=== PATIENT | male | born 1945 | race Caucasian/White ===

== ENCOUNTER 2017-03-27 15:06 | Day surgery (SDC) | payer BC, OTHER ==
--- NOTE | 2017-03-27 15:48 | PDOC ---
History of Present Illness - General Chief Complaint: Pain Stated Complaint: SCROTUM PAIN Time Seen by Provider: 03/27/17 15:24 History Source: Patient Exam Limitations: No Limitations - History of Present Illness Initial Comments: 03/27/17 15:44 Patient is 71M with history of seizures, HTN and HLD here today with a complaint of testicular torsion on ultrasound imaging. He's had intermittent testicular pain for the past 2 days. He currently has no symptomatic complaints. He says that he had nausea associated with pain. He denies current nausea, vomiting, fevers and chills. He denies chest pain, shortness of breath, and abdominal pain. Past History - Past Medical History Allergies/Adverse Reactions: Allergies Allergy/AdvReac Type Severity Reaction Status Date / Time meperidine HCl [From Demerol] AdvReac Unverified 03/27/17 15:17 Home Medications: Ambulatory Orders CarBAMazepine [Carbatrol ER] 400 mg PO BID 12/14/11 Nifedipine [Nifediac cc] 60 mg PO BID 12/14/11 Ropinirole HCl [Requip] 0.5 mg PO BID 12/14/11 Pravastatin Sodium [Pravachol -] 40 mg PO HS 09/06/13 Anemia: Yes Asthma: No Cancer: No Cardiac Disorders: No CVA: No COPD: No CHF: No Dementia: No Diabetes: No GI Disorders: Yes (COLONIC POLYPS, HEMORRHOIDS ATTENUATED FAMILIAL ADENOMATOSIS) Disorders: No HTN: Yes Hypercholesterolemia: Yes Liver Disease: No Seizures: Yes (last seizure LAST SEIZURE 2 YEARS AGO lesion on brain) Thyroid Disease: No - Surgical History Abdominal Surgery: Yes (HERNIA) Appendectomy: No Cardiac Surgery: No Cholecystectomy: No Lung Surgery: No Neurologic Surgery: No Orthopedic Surgery: No - Psycho/Social/Smoking Cessation Hx Suicidal Ideation: No Smoking History: Never smoked Have you smoked in the past 12 months: No Information on smoking cessation initiated: No Hx Alcohol Use: No Drug/Substance Use Hx: No Substance Use Type: None Review of Systems - Review of Systems Comments:: 03/27/17 15:48 GENERAL/CONSTITUTIONAL: No fever or chills. No weakness. HEAD, EYES, EARS, NOSE AND THROAT: No change in vision. No ear pain or discharge. No sore throat. CARDIOVASCULAR: No chest pain or shortness of breath RESPIRATORY: No cough, wheezing, or hemoptysis. GASTROINTESTINAL: No nausea, vomiting, diarrhea or constipation. GENITOURINARY: Positive for intermittent testicular pain SKIN: No rash NEUROLOGIC: No headache, vertigo, loss of consciousness, or change in strength/ sensation. ALLERGIC/IMMUNOLOGIC: No hives or skin allergy. *Physical Exam - Vital Signs Last Vital Signs Temp Pulse Resp BP Pulse Ox 97.8 F 111 H 18 154/99 100 03/27/17 15:12 03/27/17 15:12 03/27/17 15:12 03/27/17 15:12 03/27/17 15:12 - Physical Exam Comments: 03/27/17 15:49 GENERAL: Awake, alert, and fully oriented, in no acute distress HEAD: No signs of trauma, normocephalic, atraumatic EYES: PERRLA, EOMI, sclera anicteric, conjunctiva clear ENT: Auricles normal inspection, hearing grossly normal, nares patent, oropharynx clear without exudates. Moist mucosa LUNGS: No distress, speaks full sentences, clear to auscultation bilaterally HEART: Regular rate and rhythm, normal S1 and S2, no murmurs, rubs or gallops, peripheral pulses normal and equal bilaterally. ABDOMEN: Soft, nontender, normoactive bowel sounds. No guarding, no rebound. No masses EXTREMITIES: Normal inspection, Normal range of motion, no edema. No clubbing or cyanosis. NEUROLOGICAL: Cranial nerves II through XII grossly intact. Normal speech, normal gait, no focal sensorimotor deficits SKIN: Warm, Dry, normal turgor, no rashes or lesions noted. ED Treatment Course - LABORATORY CBC & Chemistry Diagram: 03/27/17 15:30 03/27/17 15:30 - RADIOLOGY Radiology Studies Ordered: Category Date Time Status CHEST X-RAY PORTABLE* [RAD] Stat Radiology 03/27/17 15:25 Ordered Medical Decision Making - Medical Decision Making 03/27/17 15:49 71M with history of seizures, htn and hld here today for ultrasound showing testicular torsion. Urologist is Lai. Admit to OR in. Preop labs, ecg and chest x-ray ordered. *DC/Admit/Observation/Transfer Diagnosis at time of Disposition: Torsion of testis - Discharge Dispostion Condition at time of disposition: Stable Admit: Yes
--- NOTE | 2017-03-27 15:54 | PDOC ---
Attending Attestation - Resident Resident Name: Fawad Chavez - ED Attending Attestation I have performed the following: I have examined & evaluated the patient, The case was reviewed & discussed with the resident, I agree w/resident's findings & plan, Exceptions are as noted - HPI HPI: 03/27/17 15:51 testicular torsion seen on outpatient ultrasound - Physicial Exam PE: 03/27/17 15:51 Patient pain free now - Medical Decision Making 03/27/17 15:53 To OR; Urologist
[2017-03-27 16:07] LABS: MCH 29.3 pg (25.7-33.7); MCHC 32.8 g/dl (32.0-35.9); MEAN CELL VOLUME 89.4 fl (80-96); MEAN PLT VOLUME 9.1 fl (7.5-11.1); PLATELET COUNT 202 K/MM3 (134-434); RDW 13.7 % (11.9-15.9)
[2017-03-27 16:23] LABS: INR 1.05 (0.82-1.09); PROTHROMBIN TIME (PATIENT) 11.6 SEC (9.98-11.88)
[2017-03-27] MEDS ORDERED: IBUPROFEN 800 MG/8 ML IJ IVPB PRN (16:33)
--- NOTE | 2017-03-27 16:33 | HP ---
[facility] - Chief Complaint Chief Complaint: right testicular pain and swelling History of Present Illness: 71 year old male with 4 days of right testicular pain and swelling. 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 He was immediately sent to Urology and from there was sent to [facility]. No flow to the right testicle was seen. Patient was sent to the ER. History Source: Patient Limitations to Obtaining History: No Limitations - Past Medical History Allergies/Adverse Reactions: Allergies Allergy/AdvReac Type Severity Reaction Status Date / Time meperidine HCl [From Demerol] AdvReac Unverified 03/27/17 15:17 Cardiovascular: No: AFIB, Aneurysm, Aortic Insufficiency, Aortic Stenosis, CAD, CHF, Deep Vein Thrombosis, HTN, Hyperlipdemia, SD, Mitral Insufficiency, Mitral Stenosis, Murmur, Pulmonary Hypertension, Other Pulmonary: No: Asthma, Bronchitis, Cancer, COPD, O2 Dependent, Pneumonia, Previously Intubated, Pulmonary Embolus, Pulmonary Fibrosis, Sleep Apnea, Other Gastrointestinal: Yes: Cancer (history of colon cancer) Renal/: No: Renal Failure, Renal Inusuff, BPH, Cancer, Hematuria, Hemodialysis , Neurogenic Bladder, Renal Calculi, UTI, Other - Current Medications Current Medications: Home Medications Medication Instructions Recorded CarBAMazepine [Carbatrol ER] 400 mg PO BID 12/14/11 Nifedipine [Nifediac cc] 60 mg PO BID 12/14/11 Ropinirole HCl [Requip] 0.5 mg PO BID 12/14/11 Pravastatin Sodium [Pravachol -] 40 mg PO HS 09/06/13 [facility] Physical Exam - Physical Examination Vital Signs: Vital Signs Period Temp Pulse Resp BP Sys/Goddard Pulse Ox Last 24 Hr 97.8 F 111 18 154/99 100 General Appearance: Well Nourished, Well Developed, Alert & Oriented x3 ENT: Clear, No Discharge, No masses Lung: Clear to auscultation Heart: Regular rate & rhythm, Normal S1, Normal S2 Abdomen: Soft, No tenderness, No CVA Extremities: No edema, No tenderness/swelling Pelvic Exam: Other External Genitalia (right testicular pain and swelling) Neurological: Intact, Alert, Oriented [facility] Impression/Plan - Impression/Plan Impression: right testicular torsion Operative Procedure: scrotal exploration. possible right orchiectomy, bilateral orchipexy, urgent Date to be Performed: 03/27/17
[2017-03-27 16:35] LABS: ALBUMIN 3.9 g/dl (3.4-5.0); ANION GAP 10 (8-16); CALCIUM 9.6 mg/dL (8.5-10.1); CO2 24 mmol/L (21-32); GLUCOSE,RANDOM 108 mg/dL (74-106); SGPT/ALT 27 U/L (12-78)
[2017-03-27 16:37] LABS: ALK PHOS 140 U/L (45-117); BILIRUBIN,TOTAL 0.5 mg/dL (0.2-1.0); CREATININE 1.6 mg/dL (0.7-1.3); SGOT/AST 20 U/L (15-37)
[2017-03-27] MEDS ORDERED: DESFLURANE GAS 240 ML BOTTLE IH ONE (16:42)
[2017-03-27] MEDS ORDERED: DEXTROSE 5%-0.45% SALINE 1,000 ML IV SCH (16:45)
[2017-03-27] MEDS ORDERED: PROPOFOL 20 ML ONE (17:06)
[2017-03-27] MEDS ORDERED: ceFAZolin SODIUM 1 GM VIAL IVPB ONE (17:34)
--- NOTE | 2017-03-27 18:03 | OP ---
Operative Note - Note: Operative Date: 03/27/17 Pre-Operative Diagnosis: right testicular torsion, left hydrocele Operation: right orchiectomy ,left hydrocelectomy and orchipexy
[2017-03-27] MEDS ORDERED: oxyCODONE HCL 5 MG TABLET PO PRN (18:14)
[2017-03-27] MEDS ORDERED: PROMETHAZINE HCL 25 MG/1 ML VIAL IVPUSH PRN (18:14)
[2017-03-27] MEDS ORDERED: ONDANSETRON 4 MG/2 ML VIAL IVPUSH PRN (18:14)
[2017-03-27] MEDS ORDERED: ACETAMINOPHEN INJECTION 100 ML IVPB ONE (18:22)
[2017-03-27] MEDS: ACETAMINOPHEN 1000 MG/100 ML VIAL (NON FORMULARY) IVPB ONE (18:25)
[2017-03-28] MEDS ORDERED: CEFTRIAXONE 1 GM in DEXTROSE 5%-WATER - 50 ML IVPB ONE (09:00)
--- NOTE | 2017-03-28 09:36 | OP ---
DATE OF OPERATION: 03/27/2017 PREOPERATIVE DIAGNOSES: Right testicular torsion and left hydrocele. POSTOPERATIVE DIAGNOSES: Right testicular torsion and left hydrocele. PROCEDURE: Right orchiectomy, left hydrocelectomy, and left orchiopexy. ANESTHESIA: General. ESTIMATED BLOOD LOSS: 20 mL SURGEON: Fawad Hoyt MD SPECIMENS: Right testicle. PREOPERATIVE INDICATIONS: The patient is a 71-year-old male who comes in with 4 days of right testicular pain and swelling. Ultrasound reveals right testicular torsion. DESCRIPTION OF OPERATION: The patient was brought to the OR, placed on the table in the supine position, given general anesthesia and IV antibiotics, and the groin was prepped and draped sterilely. Timeout was performed. Incision was made over the midline of the scrotum. The right hemiscrotum was entered right away. Bloody fluid was seen. The testicle was black and swollen and twisted 3 times around its cord. It was untwisted, and hot water was placed on it with a sponge. Attention was then placed to the left side. Left hemiscrotum was opened. Two hydroceles were seen, and they were opened and drained. Testicle itself appeared to be healthy otherwise. Orchiopexy was performed with 3-point fixation using Ethibond suture. The left hemiscrotum was then closed. The right testicle still was necrotic. This was removed. The cord was clamped in two and excised and oversewn. Good hemostasis was maintained. The dartos and the skin layer were then closed using Vicryl and chromic suture. Good hemostasis was maintained. Wound was dressed. The patient was woken up. Colten [id number]
[2017-03-28] MEDS ORDERED: cefTRIAXone SODIUM 1 GM VIAL ONE (09:49)
[2017-03-28] MEDS ORDERED: DEXTROSE 5%-WATER - 50 ML IVPB ONE (09:50)
[2017-03-28] MEDS: ACETAMINOPHEN 1000 MG/100 ML VIAL (NON FORMULARY) IVPB ONE (09:52)
--- NOTE | 2017-03-28 10:26 | PN ---
Progress Note, Physician History of Present Illness: Pt w/o fever, chills, SOB, CP, palp, abd pain. Pt is receiving IV Cefttriaxone now; he needs his AM meds. Pt is a patient of my practice, seen yesterday in the office for right testicular pain for few days, sent to , had testicular US c/w right testicular torsion; pt went to OR yesterday and required right orchiectomy. - Current Medication List Current Medications: Active Medications Fentanyl (Sublimaze Injection -) 50 mcg IVPUSH [id number] PRN PRN Reason: PAIN Stop: 03/30/17 18:15 Dextrose/Sodium Chloride (D5-1/2ns -) 1,000 mls @ 125 mls/hr IV ASDIR JOSE Last Admin: 03/27/17 21:49 Dose: Not Given Ibuprofen (Caldolor Injection -) 800 mg IVPB Q8H PRN PRN Reason: PAIN OR FEVER Oxycodone HCl (Roxicodone -) 10 mg PO Q4H PRN PRN Reason: SEVERE PAIN Stop: 03/28/17 18:13 - Objective Vital Signs: Vital Signs Temperature 100.6 F H 03/28/17 06:00 Pulse Rate 59 L 03/28/17 06:00 Respiratory Rate 20 03/28/17 06:00 Blood Pressure 105/54 03/28/17 06:00 O2 Sat by Pulse Oximetry (%) 98 03/27/17 21:00 Constitutional: Yes: No Distress, Calm Cardiovascular: Yes: Regular Rate and Rhythm, S2 Respiratory: Yes: Regular, CTA Bilaterally. No: Rales Gastrointestinal: Yes: Normal Bowel Sounds, Soft. No: Tenderness Genitourinary: Yes: Other (scrootal area coverred with surgical dressing) Edema: No Neurological: Yes: Alert, Oriented Labs: CBC, BMP 03/27/17 15:30 03/27/17 15:30 INR, PTT INR 1.05 (0.82-1.09) 03/27/17 15:30 Problem List - Problems (1) Testicular torsion Code(s): N44.00 - TORSION OF TESTIS, UNSPECIFIED (2) Hypertension Code(s): I10 - ESSENTIAL (PRIMARY) HYPERTENSION (3) Seizure Code(s): R56.9 - UNSPECIFIED CONVULSIONS (4) Hyperkalemia Code(s): E87.5 - HYPERKALEMIA Assessment/Plan Home medications were reviewed and ordered. BMP was reordered for this AM- to f/u on potassium. DC per KENRICK
[2017-03-28 10:35] VITALS: BP 105/60; PULSE 92; TEMP 99.8
[2017-03-28 11:21] LABS: ANION GAP 5 (8-16); CO2 27 mmol/L (21-32); CREATININE 1.1 mg/dL (0.7-1.3); GLUCOSE,RANDOM 98 mg/dL (74-106)
[2017-03-28 12:03] VITALS: BMI 26.2
[2017-03-28] MEDS ORDERED: PT OWN MED DRAWER 7, Y5N ONE ×2 (12:30→14:07)
--- NOTE | 2017-03-28 14:04 | PN ---
Progress Note (short form) - Note Progress Note: patient feels well. low grade fever voiding eating. incision clean, A/P testicular torsion S/P orchiectomy discharge home on abx and pain meds
--- NOTE | 2017-03-28 15:14 | PN ---
Progress Note (short form) - Note Progress Note: Anesthesia postop note 71 y/o M s/p GA for orchiectomy POD#1, vss, aaox3, pain well controlled, no complaints No anesthesia complications.
--- NOTE | 2017-03-28 19:11 | EKG ---
Test Reason : Blood Pressure : / mmHG Vent. Rate : 092 BPM Atrial Rate : 092 BPM P-R Int : 164 ms QRS Dur : 086 ms QT Int : 350 ms P-R-T Axes : 046 002 028 degrees QTc Int : 432 ms NORMAL SINUS RHYTHM POSSIBLE LEFT ATRIAL ENLARGEMENT BORDERLINE ECG NO PREVIOUS ECGS AVAILABLE BASELINE ARTIFACTS. BASELINE ARTIFACTS. REPEAT EKG IF CLINICALLY INDICATED Confirmed by MIREYA ORELLANA MD ([id number]) on 03/28/2017 7:11:13 PM Referred By: Confirmed By:MIREYA ORELLANA MD
[2017-03-28] MEDS ORDERED: ATORVASTATIN CA 10 MG TABLET (FP) PO SCH (22:00)
[2017-03-28] MEDS ORDERED: CARBAMAZEPINE 400 MG PO SCH (22:00)
[2017-03-28] MEDS ORDERED: NIFEdipine E.R 60 MG TABLET (UD) PO SCH (22:00)
[2017-03-28] MEDS ORDERED: rOPINIRole HCL 0.5 MG TABLET PO SCH (22:00)
--- NOTE | 2017-03-30 12:04 | PATH ---
Surgical Pathology Report Patient Name: PADILLA ESCOBAR [facility]. Rec. #: [id number] /Age/Gender: 1945 (Age: 71) / M Account: [id number] Location: AMBULATORY SURG Taken: 03/28/2017 Received: 03/28/2017 Reported: 03/30/2017 Physicians: Fawad Hoyt M.D. Specimen(s) Received RIGHT TESTICLE Clinical History Testicular torsion Final Diagnosis TESTICLE, RIGHT, ORCHIECTOMY: TESTIS, EPIDIDYMIS AND SPERMATIC CORD WITH INFARCTION, MARKED VASCULAR CONGESTION AND HEMORRHAGE CONSISTENT WITH CLINICAL HISTORY OF TORSION. BENIGN EPIDIDYMAL CYSTS WITH MESOTHELIAL TYPE LINING. NO MALIGNANCY IDENTIFIED. Electronically Signed Dc Morales M.D. Gross Description Received in formalin labeled "right testicle" is an 82 g orchiectomy specimen including testis (4.5 x 2.8 x 2.7 cm), epididymis (4.5 x 2.0 x 2.0 cm) and a 1 cm in length portion of spermatic cord. The outer capsule is red-brown, intact and infarcted. Sectioning reveals 2 cysts within the epididymis measuring 1.4 and 2.2 cm in greatest dimension. The inner lining of the cysts is smooth. The remaining epididymal and testicular parenchyma is red-brown, hemorrhagic and infarcted. Estate Manager sections are submitted in 10 cassettes as follows: 1-spermatic cord margin of resection; 2-smaller epididymal cyst; 3-4-larger epididymal cyst; 5-additional epididymis; 6-testicle to hilar region; 7-4-dcuvqopyno parenchyma; 10-additional spermatic cord. 03/28/2017 [facility]03/28/2017
== END 2017-03-28 15:12 | disposition home or self-care (01) ==
LOC: JER 15:06 → JASUSAT 17:27 → J8W 19:30 → JASUSAT 03-28 15:12
PROVIDERS: ATTEND Urology
PROC: 0VS90ZZ Reposition Right Testis, Open Approach (ICD-10-PCS; 2017-03-27)
PROC: 0VBG0ZZ Excision of Left Spermatic Cord, Open Approach (ICD-10-PCS; principal; 2017-03-27 16:00)
PROC: 0VT90ZZ Resection of Right Testis, Open Approach (ICD-10-PCS; 2017-03-27 16:00)
DX: N44.00 Torsion of testis, unspecified (principal); N43.3 Hydrocele, unspecified
CPT/HCPCS: 36415; 71010-TC; 76870-TC; 80048; 80053; 85027; 85610; 86850; 86900; 86901; 88305-TC; 93005; 93010; 94760; 99285-25